=== PATIENT | female | born 1935 | race Asian ===

== ENCOUNTER 2018-07-14 10:31 | Emergency (ER) | payer MEDICARE, OTHER ==
[~2018-07-14] VITALS: Ht 152.4 cm; Wt 42.0 kg
[2018-07-14 11:00] VITALS: Ht 152.4 cm; Wt 42.0 kg
--- NOTE | 2018-07-14 13:30 | ERD ---
ER Documentation Chief Complaint Chief Complaint PT BIB RA with c/o dizziness and vomiting since 1 hour prior. HPI 82-year-old female with a history of hypertension, diabetes, depression, dementia, hyperthyroidism, chronic kidney disease, urinary tract infections and dementia status post remote appendectomy and cholecystectomy presents to the ED by rescue ambulance for evaluation of dizziness with nausea and vomiting. Patient was at a restaurant having lunch with a friend when she suddenly began complaining of dizziness, nauseated and had an episode of nonbloody nonbilious emesis. [facility] were called and she is transported to the ED. On arrival she is asymptomatic. Denies URI symptoms, tinnitus or hearing changes. There was no syncope, loss of consciousness or seizure. Denies headache, visual changes, focal weakness or numbness. No chest pain or palpitation. Denies abdominal pain or back pain. No fevers or chills. Patient reports having similar episodes and she was younger but not for many years. ROS All systems reviewed and are negative except as per history of present illness. Medications Home Meds No Active Prescriptions or Reported Meds Allergies Allergies: Coded Allergies: No Known Allergy (Unverified , 07/14/18) PMhx/Soc History of Surgery: Yes (appendectomy) Anesthesia Reaction: No Hx Neurological Disorder: No Hx Respiratory Disorders: No Hx Cardiac Disorders: No Hx Psychiatric Problems: No Hx Miscellaneous Medical Probl: No Hx Alcohol Use: No Hx Substance Use: No Hx Tobacco Use: No Smoking Status: Never smoker Physical Exam Vitals Vital Signs Date Temp Pulse Resp B/P (MAP) Pulse Ox O2 O2 Flow FiO2 Time Delivery Rate 07/14/18 97.8 61 16 125/83 100 11:00 (97) Physical Exam Const: No acute distress Head: Atraumatic Eyes: Normal Conjunctiva ENT: Normal External Ears, Nose and Mouth. Neck: Full range of motion. No meningismus. Resp: Clear to auscultation bilaterally Cardio: Regular rate and rhythm, no murmurs Abd: Soft, non tender, non distended. Normal bowel sounds Skin: No petechiae or rashes Back: No midline or flank tenderness Ext: No cyanosis, or edema Neur: Awake and alert Psych: Normal Mood and Affect Result Diagram: 07/14/18 1140 07/14/18 1140 Results 24 hrs Laboratory Tests Test 07/14/18 11:40 White Blood Count 7.6 10^3/ul Red Blood Count 4.00 10^6/ul Hemoglobin 12.1 g/dl Hematocrit 37.5 % Mean Corpuscular Volume 93.8 fl Mean Corpuscular Hemoglobin 30.3 pg Mean Corpuscular Hemoglobin Concent 32.3 g/dl Red Cell Distribution Width 13.1 % Platelet Count 246 10^3/UL Mean Platelet Volume 9.5 fl Immature Granulocytes % 0.300 % Neutrophils % 68.6 % Lymphocytes % 24.7 % Monocytes % 5.0 % Eosinophils % 1.1 % Basophils % 0.3 % Nucleated Red Blood Cells % 0.0 /100WBC Immature Granulocytes # 0.020 10^3/ul Neutrophils # 5.2 10^3/ul Lymphocytes # 1.9 10^3/ul Monocytes # 0.4 10^3/ul Eosinophils # 0.1 10^3/ul Basophils # 0.0 10^3/ul Nucleated Red Blood Cells # 0.0 10^3/ul Sodium Level 143 mmol/L Potassium Level 3.8 mmol/L Chloride Level 105 mmol/L Carbon Dioxide Level 29 mmol/L Anion Gap 9 Blood Urea Nitrogen 21 mg/dl Creatinine 1.01 mg/dl Est Glomerular Filtrat Rate mL/min mL/min Glucose Level 150 mg/dl Calcium Level 9.5 mg/dl Troponin I < 0.012 ng/ml Procedures/MDM DOCUMENTS REVIEWED: ED nurse, [ ] LAB INTERPRETATION: [] EKG: Time: 11:57. Sinus rhythm. Ventricular rate 61. Normal MS QRS. Nonspecific T wave changes. No acute ST segment elevation or depression. No ectopy. My Interpretation ED COURSE: [] REEXAMINATION/REEVALUATION: Time: 13:47 [employer]-year-old female with a history of hypertension, diabetes, depression, dementia, hyperthyroidism, chronic kidney disease, urinary tract infections and dementia status post remote appendectomy and cholecystectomy presents to the ED by rescue ambulance for evaluation of dizziness with nausea and vomiting. Patient's neurologic symptoms have stabilized while they have been evaluated in the department and are appropriate for outpatient work up. No evidence of meningitis, intracranial bleed, seizure, stroke, or elevated intracranial pressure and neuro imaging is not indicated. Stable for discharge with precautionary instructions and outpatient follow-up as counseled. Counseled patient[ and family] regarding diagnostic workup, diagnosis and need for followup. Understands to return to ED if symptoms recur, worsen or any other concerns. Departure Diagnosis: Primary Impression: Dizziness Additional Impression: Mild dehydration Condition: Stable (Improved) SEGUNDO QUINTANILLA MD July 14, 2018 13:30
[2018-07-14 14:13] VITALS: BP 130/87; PULSE 61; RESP 18
== END 2018-07-14 14:16 | disposition home or self-care (01) ==
LOC: E/R 10:31
DX: E86.0 Dehydration (principal); I12.9 Hypertensive chronic kidney disease with stage 1 through stage 4 chronic kidney disease, or unspecified chronic kidney disease; N18.9 Chronic kidney disease, unspecified; E11.22 Type 2 diabetes mellitus with diabetic chronic kidney disease
CPT/HCPCS: 36415; 80048; 84484; 85025; 93005